=== PATIENT | female | born 1975 | race African-American/Black ===

== ENCOUNTER 2020-02-02 18:25 | Emergency (ER) | payer BC ==
[~2020-02-02] VITALS: Ht 167.6 cm; Wt 65.8 kg
[2020-02-02] MEDS ORDERED: PROAIR HFA8.5 GM INH ×2 (19:18→20:24)
[2020-02-02 20:56] VITALS: BP 144/65
== END 2020-02-02 20:56 | disposition home or self-care (01) ==
LOC: ER 18:25
DX: R06.00 Dyspnea, unspecified (principal); J02.9 Acute pharyngitis, unspecified; R51 Headache